=== PATIENT | male | born 1955 | race Caucasian/White ===

== ENCOUNTER 2025-01-23 18:57 | Emergency (ER) | payer MEDICARE, SELFPAY ==
[2025-01-23 19:04] VITALS: BP 176/105; PULSE 77; RESP 17; TEMP 36.4; O2SAT 96; BMI 28.3
--- NOTE | 2025-01-23 20:08 | PC.NURSE ---
this nurse assumed pt care from Swetha FIGUEREDO at 2004.
--- NOTE | 2025-01-23 20:13 | W.ED.SKABFB ---
HPI - Skin/Abscess/Foreign Bdy General: Chief complaint: Skin/Abscess/Foreign Body Stated complaint: fish hook stuck in R thumb Time Seen by Provider: 01/23/25 19:26 History of Present Illness: 69-year-old male patient who got a fishhook stuck in his right thumb. Attempted removal, but could not. Bleeding is controlled. No complication. Hook is embedded with a gaviota in the palmar pad of the distal thumb. No nail involvement. Related Data Allergies Allergy/AdvReac Type Severity Reaction Status Date / Time morphine Allergy Unknown Verified 01/23/25 19:08 Physical Exam Const: COMMON NORMALS: no acute distress GENERAL APPEARANCE: cooperative; not ill appearing and not frail appearing HENMT: COMMON NORMALS: normocephalic and atraumatic HEAD & SCALP: normocephalic and atraumatic Eye: COMMON NORMALS: Equal, round and reactive pupils present and EOMs intact bilaterally PUPIL: Yes Equal, round and reactive pupils present Neck/C-Spine: GENERAL: Yes trachea midline Chest: CHEST: Yes Symmetrical chest wall rise Cardio: COMMON NORMALS: regular rate and regular rhythm RATE: regular rate RHYTHM: regular rhythm Neuro: SIMONE COMA SCALE: document GCS findings Simone coma scale eye opening: Spontaneous [place] coma scale verbal response: Orientated Simone coma scale motor response: Obey commands Simone coma scale total score: 15 SENSORY EXAM: Yes extremities (intact) Psych: COMMON NORMALS: speech normal SPEECH: Yes normal speech Skin: COMMON NORMALS: no rashes or lesions noted NARRATIVE SKIN EXAM: Hook embedded in the distal palmar pad of the thumb on the right side. Bleeding controlled. No laceration. GENERAL SKIN EXAM: no rashes or lesions noted Procedures Foreign Body Removal Site: other (Right thumb) Description of foreign body: fish hook Sedation/Analgesia: none Technique: removal with forceps Confirmed by:: direct visualization Complications: none Post-procedure exam: awake, alert Neurovascular: normal capillary fill Course Vital Signs: Vital signs: Vital Signs Temperature 97.6 F 01/23/25 19:04 Pulse Rate 77 01/23/25 19:04 Respiratory Rate 17 01/23/25 19:04 Blood Pressure 176/105 01/23/25 19:04 Pulse Oximetry 96 01/23/25 19:04 Oxygen Delivery Me thod Room Air 01/23/25 19:04 MDM - Skin/Abscess/Foreign Bdy Medicial Decision Making Hook removed with push through technique, no complication. Tetanus updated. Discharged. No radiology studies performed this visit Discharge Plan Discharge Patient Disposition: Home Clinical Impression: Fish hook in finger Condition: Stable Discharge Orders: Discharge ED (Routine); Ordered 01/23/25 Ordered By: Santana Loving Patient Instructions: Puncture Wound (ED), Opioid Safety, Pain Management Activity Restrictions/Additional Instructions: Clean with soap and running water. Return for increased pain, swelling, redness, etc. Print Language: Syriac Coding Level of Care Code ED Hotel Maintenance Engineer for [employer]
[2025-01-23] MEDS: tetanus-dipt-pertussis 0.5 mL SDV IM (20:19)
== END 2025-01-23 20:26 | disposition home or self-care (01) ==
PROVIDERS: Emergency Provider Emergency Medicine
DX: S61.041A Puncture wound with foreign body of right thumb without damage to nail, initial encounter (principal); W45.8XXA Other foreign body or object entering through skin, initial encounter
CPT/HCPCS: 90715; 99283; 99291

== ENCOUNTER 2025-06-03 16:49 | Emergency (ER) | payer MEDICARE, SELFPAY ==
--- OUTSIDE RECORDS SUMMARY | 2023-01-17 19:00 | XMS_ITS | Continuity of Care Document ---
Author Organization [facility] Address [address] [place] [address] Phone Care Team Providers Care Vice President Media Relations Name Role Phone Noah Nelson MD Unavailable Unavailable Advance Directives Directive Yes / No Effective Date File Name No Information Encounters Encounter Description Practice Location Reason(s) For Visit Diagnoses Date Provider Providers Copied on Encounter [facility] [address], [place], [place], [id number], [place] tel:[phone] [facility] No Information 3 Omar Zamora. [address] [facility] [facility], [address], [place], [place], [id number] , [place]. [phone] Family History Family Member Type Diagnosis Age At Onset No Information Payers Payer name Insurance type Covered constitution party ID Authoriza tion(s) No Information Social History Type Description Quantity Date Captured Comments Sex Male Smoking Status No Information Chief Complaint And Reason For Visit No Information Reason For Referral Reason For Referral No Information History Of Present Illness Encounter Date Complaint History Of Prese nt Illness No Information Functional Status Date Functional Assessmen t No Information Instructions Date Instruction Additional Infor leana Impression/Plan Related to Recen t retinal detachment, total or subtotal Assessments Type Assessment Date No Information Patient Care Teams Name Effective Dates (start - stop) Status Members No Information
--- OUTSIDE RECORDS SUMMARY | 2025-06-03 16:55 | XMS_ITS | Clinical Summary ---
Author Organization [facility] Address [address] [place] [place] [address] Care Team Providers Care Anode Crew Supervisor Name Role Phone Deanne Sood) Richard Primary Care Provider Source Comments NOTE: The information displayed by Care Everywhere is extracted from the complete medical record and may not identify all current or past patient conditions.[facility] Allergies Active Allergy Reactions Criticality Noted Date Comments Morphine 11/25/2022 Other reaction(s): Edema, Weal Medications Medication Sig Dispensed Refills Start Date End Date Status Alcohol (BD ALCOHOL SWABS) Top Med PadsIndications:DM 2 W HYPERGLYCEMIA Use as directed 200 Each 3 11/27/2022 11/26/2026 Active Container (SHARPS CONTAINER) Misc MiscIndications:DM 2 W HYPERGLYCEMIA Use for sharps disposal as directed 1 Each 11/27/2022 11/26/2026 Active Aspirin (ECOTRIN LOW STRENGTH) [address] TabIndications:DM 2 CONTROLLED BY DIET,DYSLIPIDEMIA Take 1 tablet by mouth daily 100 tablet 06/05/2023 06/04/2027 Active blood sugar diagnostic (ONETOUCH VERIO TEST STRIPS) Misc StripsIndications:DM 2 Use two times a day for blood sugar 200 Strip 3 09/27/2024 09/27/2026 Active lancets (ONETOUCH DELICA PLUS LANCET) 30 gauge Misc MiscIndications:DM 2 Use 2 times a day as directed to test blood sugar. For use with Delica Plus lancing device 200 Each 3 09/27/2024 09/27/2026 Active Atorvastatin (LIPITOR) 20 mg Oral TabIndications:HYPER LIPIDEMIA Take 1 tablet by mouth daily to reduce risk of heart attacks and strokes 100 tablet 1 04/27/2025 04/27/2027 Active Levothyroxine (LEVOTHROID/SYNTHROI D) 100 mcg Oral TabIndications:KIM UMA THYROIDITIS,HYPOTHYR OIDISM DUE TO THYROIDITIS Take 1 tablet by mouth daily 30 minutes before breakfast six days per week, and take 1 and half tablets (equal to 150 mcg) by mouth daily one day per week 150 tablet 2 04/27/2025 04/27/2027 Active Ciprofloxacin (CIPRO) 500 mg Oral TabIndications:ABDOM INAL PAIN Take 1 tablet by mouth 2 times a day for 10 days 20 tablet 04/27/2025 05/27/2025 metroNIDAZOLE (FLAGYL) 500 mg Oral TabIndications:ABDOM INAL PAIN Take 1 tablet by mouth 3 times a day for 10 days 30 tablet 04/27/2025 05/27/2025 Active Problems Problem Noted Date Diagnosed Date MIXED HEADACHE 09/27/2024 FATTY LIVER 03/30/2024 Overview (04/27/2025): FIB-4 Index Component Found Value More Info Age 69 n/a ALT 19 03/17/2024 2:17 PM AST 17 03/17/2024 2:17 PM Platelets 215 03/17/2024 2:17 PM Score: 1.25 Points LOW RISK: Virtual Classroom Manager patient to drink no alcohol Order nonalcoholic fatty liver disease video to be sent to patient (infant childcare provider online education programs) Refer patient to [facility] for weight loss and/or to maintain normal BMI If patient candidate for bariatric surgery, consider referral Repeat Fatty Livery Fibrosis Panel and recalculate Fib4 score in 3 years Note: Weight loss of 10% leads to significant improvement in SIFUENTES FIB-4 Index Component Found Value More Info Age 70 n/a ALT 18 04/26/2025 8:49 AM AST 20 04/26/2025 8:49 AM Platelets 221 04/26/2025 8:49 AM Score: 1.49 Points HIGH RISK: Obtain Fibroscan (order can be placed under GI referral and may require travel to another medical center) Virtual Classroom Manager patient to drink no alcohol Order nonalcoholic fatty liver disease video to be sent to patient (infant childcare provider online education programs) Refer patient to [facility] for weight loss and/or to maintain normal BMI If Fib4 > 3.25, consider early GI referral given high risk of cirrhosis If patient candidate for bariatric surgery, consider referral Note: Weight loss of 10% leads to significant improvement in SIFUENTES DM 2 12/02/2023 CHRONIC NECK PAIN > 3 MONTHS 12/02/2023 BILAT KNEE JOINT PAIN 08/27/2023 MATHEMATICS FACULTY MEMBER NON WARFARIN ORAL ANTICOAGULANT THERAP Y 05/20/2023 CHRONIC LOW BACK PAIN W LUMBAR RADICULOPATHY 04/2023 DM 2 CONTROLLED BY DIET 04/18/2023 CHEST PAIN 11/26/2022 ATHEROSCLEROSIS OF AORTA 07/02/2021 Overview (07/02/2021): 06/2021 chest xray GENERALIZED ANXIETY DISORDER 04/03/2021 COSTOCHONDRITIS 04/03/2021 OSTEOARTHRITIS OF BILAT HIPS 02/02/2021 Overview (02/02/2021): 01/2021 xray - mild GERD (GASTROESOPHAGEAL REFLUX DISEASE) INSOMNIA DISORDER, NONORGANIC, PERSISTENT 2020 TENSION HEADACHE 08/14/2020 CERVICAL SPONDYLOSIS 08/14/2020 LEFT VENTRICULAR DIASTOLIC DYSFUNCTION 0 Overview (07/01/2020): 06/2020 echocardiogram - mild AORTIC VALVE REGURGITATION 07/01/2020 Overview (05/13/2023): 06/2020 echocardiogram - mild - repeat echocardiogram in 2-3 years 04/2022 dobutamine stress echocardiogram non ischemic, mild AR - repeat an echocardiogram in 3 years 04/2023 echocardiogram Doppler shows no aortic stenosis or regurgitation, SUPRAVENTRICULAR TACHYCARDIA, UNSPECIFIED 2019 Overview (07/01/2020): 03/2020 short run of SVT asymptomatic OSTEOARTHRITIS OF LEFT KNEE 03/26/2019 BORIS THYROIDITIS 07/26/2018 ERECTILE DYSFUNCTION 07/24/2018 DYSLIPIDEMIA 12/09/2017 Overview (07/24/2018): ASCVD-Risk (A-Risk): 10.0% HYPOTHYROIDISM DUE TO THYROIDITIS 12/09/2017 SCREENING COLONOSCOPY 12/03/2017 Overview (12/05/2017): 12/03/2017 colonoscopy: 2 tiny polyps removed. mild Diverticulosis. Small internal hemorrhoids. -Next colonoscopy in 10 Years Pathology: hyperplastic NEVER SMOKED 11/20/2017 LUMBAR SPONDYLOSIS 11/20/2017 NECK PAIN 11/20/2017 Resolved Problems Problem Noted Date Diagnosed Date Resolved Date ATRIAL FIBRILLATION, PAROXYSMAL 05/13/2023 06/05/2023 Overview (05/13/2023): 03/2023 event monitor VENTRICULAR TACHYCARDIA, UNSPECIFIED TYPE 04/03/2023 04/03/2023 DM 2 W HYPERGLYCEMIA 11/26/2022 023 DM 2 10/15/2022 11/26/2022 DM 2 W MIXED HYPERLIPIDEMIA 06/16/2022 11/26/2022 HX OF ACUTE KIDNEY INJURY 04/01/2021 COVID-19 PNEUMONIA 04/01/2021 ACUTE HYPOXEMIC RESPIRATORY FAILURE 04/01/2021 04/02/2022 SEVERE SEPSIS W ACUTE ORGAN DYSFUNCTION 04/01/2021 04/03/2021 HX OF COVID-19 DISEASE 04/01/202103/15 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 angiogram aorta 07/2020 The ascending portion of the thoracic aorta is within the upper limits of normal in terms of caliber measuring 3.9 cm in greatest Diameter. TINGLING SENSATION 07/24/2018 8 PREDIABETES 12/09/2017 12/04/2022 Encounters Date Type Department Care Team Description 05/10/2025 8:00 AM PDT - 05/10/2025 11:59 PM PDT Hospital Encounter [facility] [address] [place] [address] Discharge Disposition: Home or Self Care. 04/27/2025 2:11 PM PDT - 04/27/2025 11:59 PM PDT Hospital Encounter [facility] [address] [place] [address] Discharge Disposition: Home or Self Care. 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; DM 2 CONTROLLED BY DIET; FATTY LIVER; ATHEROSCLEROSIS OF AORTA 04/19/2025 Telephone [facility] [address] [place] [address] Marissa Garcia PHARMACY MEDICATION ADHERENCE SERVICE from Last 3 Months Immunizations Name Administration Dates Next Due INF (Influenza) unspecified formulation 06/22/2017 INFS pres free 65 yrs and ov er high dose (Fluzone quadrivalent 11/26/2022() PCV20 ([id number]) (Pneumococ heather conjugate, 20 valent) 11/26/2022() PPSV23 (Pneumococcal polysaccharide) (Deferred: - education provided; patient refused pneumococal vaccine) Tdap (ADACEL) (Tetanus, diph theria, acellular pertussis) 2025 Tdap (Tetanus, diphtheria, a cellular pertussis) 02/20/2010 Family History Medical History Relation Comments Coronary Artery Disease Father Stroke Father Diabetes Maternal Grandfather Breast Cancer None Colon Cancer None Hypertension None Prostate Cancer None Relation Status Comments Father Maternal Grandfather Social History Tobacco Use Types Packs/Day Years Used Date Smoking Tobacco: Never Smokeless Tobacco: Never Tobacco Cessation:Counseling Given: Not Answered Alcohol Use Standard Drinks/Week Comments No 0 (1 standard drink = 0.6 oz pur e alcohol) Substance Use Types Use/Week Comments No Sex and Gender Information Value Date Recorded Sex Assigned at Not on file Gender Identity Not on file Sexual Orientation Not on file Last Filed Vital Signs Vital Sign Reading Time Taken Comments Blood Pressure 130/82 04/27/2025 1:26 PM PDT Pulse 72 04/27/2025 1:26 PM PDT Temperature 36.4 C (97.5 F) 04/27/2025 1:26 PM PDT Respiratory Rate 18 04/27/2025 1:26 PM PDT Oxygen Saturation 100% 04/27/2025 1:26 PM PDT Inhaled Oxygen Concentration - - Weight 100 kg (220 lb 7.4 oz) 04/27/2025 1:26 PM PDT Height 185.4 cm (6' 1 ) 04/27/2025 1:26 PM PDT Body Mass Index 29.09 04/27/2025 1:26 PM PDT Plan of Treatment Upcoming Encounters Date Type Department Care Team (Late st Contact Info) Description 07/30/2025 6:30 AM PST Allied Health/Nurse Visit GASTROENTEROLOGY [address] [place] [address] Melissa Mitchell (L.V.N.), L.V.N. [address] [place] [address] Health Maintenance Due Date Last Done Comments IMM PNEUMOCOCCAL (1 of 2 - PCV) 1974 IMM ZOSTER (19 YRS AND OLDER ) (1 of 2) 2005 IMM RSV HIGH RISK (60-74 YRS ) (1 - Risk 60-74 years 1-dose series) 2015 IMM INFLUENZA (6 MO AND OLDER) (#1) 05/23/202506/22 DIABETIC FOOT EXAM 09/27/2025 09/27/2024, 1 10/28/2022, 11/26/2022 IMM DTAP,TDAP,TD (42 DAYS-12 0 YRS) (3 - Td or Tdap) 2035 2025, 02/20/2010 Procedures Procedure Name Priority Date/Time Associated Diagnosis Comments CT ABD AND PELVIS WO/W CONTRAST Routine 05/04/2025 8:00 AM PDT ABDOMINAL PAIN XR RIGHT HAND 3 OR MORE VIEWS STAT 04/27/2025 2:20 PM PDT RIGHT FINGER PAIN ALBUMIN URINE Routine 04/26/2025 9:06 AM PDT HYPERLIPIDEMIA DM 2 CONTROLLED BY DIET T4, FREE Routine 04/26/2025 8:49 AM PDT ALBUMIN, BROMCRESOL GREEN Routine 04/26/2025 8:49 AM PDT DM 2 CONTROLLED BY DIET AST Routine 04/26/2025 8:49 AM PDT DM 2 CONTROLLED BY DIET PSA Routine 04/26/2025 8:49 AM PDT SCREENING POTASSIUM Routine 04/26/2025 8:49 AM PDT HYPERLIPIDEMIA DM 2 CONTROLLED BY DIET PLATELET AUTOMATED COUNT Routine 04/26/2025 8:49 AM PDT HYPERLIPIDEMIA DM 2 CONTROLLED BY DIET HEMOGLOBIN AND HEMATOCRIT Routine 04/26/2025 8:49 AM PDT HYPERLIPIDEMIA DM 2 CONTROLLED BY DIET SODIUM Routine 04/26/2025 8:49 AM PDT HYPERLIPIDEMIA DM 2 CONTROLLED BY DIET ALT Routine 04/26/2025 8:49 AM PDT HYPERLIPIDEMIA DM 2 CONTROLLED BY DIET TSH Routine 04/26/2025 8:49 AM PDT HYPERLIPIDEMIA DM 2 CONTROLLED BY DIET CREATININE Routine 04/26/2025 8:49 AM PDT HYPERLIPIDEMIA DM 2 CONTROLLED BY DIET LIPID PANEL Routine 04/26/2025 8:49 AM PDT HYPERLIPIDEMIA DM 2 CONTROLLED BY DIET HEMOGLOBIN A1C, DIABETIC MONITORING Routine 04/26/2025 8:49 AM PDT DM 2 WO COMPLICATIONS from Last 3 Months Results * CT ABD AND PELVIS WO/W CONTRAST (05/04/2025 8:00 AM PDT) Anatomical Region Laterality Modality Pelvis, Abdomen Other Addenda Addendum by Provider, Outside Imaging Richard Ramos on 05/10/2025 8:01 AM PDT Outside Study Sending Site: [facility] PtName: Juan Daniel Trejo SEX: Noah : 1955 Date of Service: 05/04/2025 12:01:00 PM [facility] Procedure: CT ABD AND PELVIS WO/W CONTRAST EXAM: CT ABDOMEN AND PELVIS WITHOUT AND WITH CONTRAST HISTORY: Abdominal pain TECHNIQUE: Contiguous axial images were obtained utilizing a multislice, multidetector CT scanner. Post-processed reformations were also submitted for review. The images of the abdomen and pelvis were obtained before and following the administration of IV contrast. Contrast: 90 cc Omnipaque 350 IV contrast. The total DLP was 2112 mGy-cm and the CTDI was 20 mGy. One or more of the following dose reduction techniques were used: automated exposure control, adjustment of the mA and/or kV according to patient size, use of iterative reconstruction technique. A total of 0 CT (Computed Tomography) examinations and 0 myocardial perfusion studies have been performed on this patient over the past 12 months. Counts as indicated include examinations performed within our network. COMPARISON: None available. FINDINGS: Lower Chest: Visualized lung bases and heart are unremarkable. Abdomen: Liver: Normal. Bile Ducts: Normal caliber. Gallbladder: No calcified gallstones. Normal wall. Pancreas: Within normal limits. Spleen: Within normal limits. Adrenals: Within normal limits. Kidneys: Within normal limits. Pelvis: Reproductive Organs: The prostate gland is mildly enlarged. Ureters: Within normal limits. Bladder: Within normal limits. GI Tract: Stomach: Within normal limits. Bowel: Normal caliber. Large colonic stool burden. Uncomplicated colonic diverticulosis. Lymph Nodes: No enlarged lymph nodes. Peritoneum: Within normal limits. Vessels: Normal caliber. Major arterial branches patent. Retroperitoneum: Within normal limits. Abdominal Wall: Within normal limits. Bones: No suspicious osseous lesion. Unless otherwise recommended, any incidental findings identified above require no follow up imaging based on consensus recommendations. IMPRESSION: 1. No acute CT finding in the abdomen or pelvis. 2. Uncomplicated colonic diverticulosis. Large colonic stool burden, suggestive of constipation. 3. Hepatic steatosis. 4. Additional details and findings, as above. ReportKey: -[id number] Narrative 05/10/2025 8:01 AM PDT Outside Study Sending Site: [facility] PtName: Juan Daniel Trejo SEX: M : 1955 Date of Service: 05/04/2025 12:01:00 PM [facility] Procedure: CT ABD AND PELVIS WO/W CONTRAST EXAM: CT ABDOMEN AND PELVIS WITHOUT AND WITH CONTRAST HISTORY: Abdominal pain TECHNIQUE: Contiguous axial images were obtained utilizing a multislice, multidetector CT scanner. Post-processed reformations were also submitted for review. The images of the abdomen and pelvis were obtained before and following the administration of IV contrast. Contrast: 90 cc Omnipaque 350 IV contrast. The total DLP was 2112 mGy-cm and the CTDI was 20 mGy. One or more of the following dose reduction techniques were used: automated exposure control, adjustment of the mA and/or kV according to patient size, use of iterative reconstruction technique. A total of 0 CT (Computed Tomography) examinations and 0 myocardial perfusion studies have been performed on this patient over the past 12 months. Counts as indicated include examinations performed within our network. COMPARISON: None available. FINDINGS: Lower Chest: Visualized lung bases and heart are unremarkable. Abdomen: Liver: Normal. Bile Ducts: Normal caliber. Gallbladder: No calcified gallstones. Normal wall. Pancreas: Within normal limits. Spleen: Within normal limits. Adrenals: Within normal limits. Kidneys: Within normal limits. Pelvis: Reproductive Organs: The prostate gland is mildly enlarged. Ureters: Within normal limits. Bladder: Within normal limits. GI Tract: Stomach: Within normal limits. Bowel: Normal caliber. Large colonic stool burden. Uncomplicated colonic diverticulosis. Lymph Nodes: No enlarged lymph nodes. Peritoneum: Within normal limits. Vessels: Normal caliber. Major arterial branches patent. Retroperitoneum: Within normal limits. Abdominal Wall: Within normal limits. Bones: No suspicious osseous lesion. Unless otherwise recommended, any incidental findings identified above require no follow up imaging based on consensus recommendations. IMPRESSION: 1. No acute CT finding in the abdomen or pelvis. 2. Uncomplicated colonic diverticulosis. Large colonic stool burden, suggestive of constipation. 3. Hepatic steatosis. 4. Additional details and findings, as above. ReportKey: -[id number] Resulting Agency Comment Unknown Procedure Note Provider, Outside Imaging (Richard), Richard - 05/10/2025 Outside Study Sending Site: [facility] PtName: Juan Daniel Trejo SEX: Noah : 1955 Date of Service: 05/04/2025 12:01:00 PM [facility] Procedure: CT ABD AND PELVIS WO/W CONTRAST EXAM: CT ABDOMEN AND PELVIS WITHOUT AND WITH CONTRAST HISTORY: Abdominal pain TECHNIQUE: Contiguous axial images were obtained utilizing a multislice,multidetector CT scanner. Post-processed reformations were also submittedfor review. The images of the abdomen and pelvis were obtained before andfollowing the administration of IV contrast. Contrast: 90 cc Omnipaque 350 IV contrast. The total DLP was 2112 mGy-cm and the CTDI was 20 mGy. One or more of the following dose reduction techniques were used:automated exposure control, adjustment of the mA and/or kV according topatient size, use of iterative reconstruction technique. A total of 0 CT(Computed Tomography) examinations and 0 myocardial perfusion studies havebeen performed on this patient over the past 12 months. Counts asindicated include examinations performed within our network. COMPARISON: None available. FINDINGS: Lower Chest: Visualized lung bases and heart are unremarkable. Abdomen: Liver: Normal. Bile Ducts: Normal caliber. Gallbladder: No calcified gallstones. Normal wall. Pancreas: Within normal limits. Spleen: Within normal limits. Adrenals: Within normal limits. Kidneys: Within normal limits. Pelvis: Reproductive Organs: The prostate gland is mildly enlarged. Ureters: Within normal limits. Bladder: Within normal limits. GI Tract: Stomach: Within normal limits. Bowel: Normal caliber. Large colonic stool burden. Uncomplicated colonicdiverticulosis. Lymph Nodes: No enlarged lymph nodes. Peritoneum: Within normal limits. Vessels: Normal caliber. Major arterial branches patent. Retroperitoneum: Within normal limits. Abdominal Wall: Within normal limits. Bones: No suspicious osseous lesion. Unless otherwise recommended, any incidental findings identified aboverequire no follow up imaging based on consensus recommendations. IMPRESSION: 1. No acute CT finding in the abdomen or pelvis. 2. Uncomplicated colonic diverticulosis. Large colonic stool burden,suggestive of constipation. 3. Hepatic steatosis. 4. Additional details and findings, as above. ReportKey: -[id number] Deanne Sood M.D. CT * XR RIGHT HAND 3 OR MORE VIEWS (04/27/2025 2:20 PM PDT) Anatomical Region Laterality Modality Hand, Upper Extremities Right Digital Radiography 04/27/2025 2:40 PM PDT Impressions 04/27/2025 2:40 PM PDT FINDINGS/IMPRESSION: No acute fracture is identified. The alignment is normal. No significant joint disease is noted. No significant soft tissue abnormality is identified. This report electronically signed by Agustin Maki MD on 04/27/2025 2:40 PM Narrative 04/27/2025 2:40 PM PDT CLINICAL HISTORY: Reason: 4th finger injury 2 weeks ago COMPARISON: No previous study available. Procedure Note Agustin Maki M.D., Richard - 04/27/2025 CLINICAL HISTORY: Reason: 4th finger injury 2 weeks ago COMPARISON: No previous study available. IMPRESSION FINDINGS/IMPRESSION: No acute fracture is identified. The alignment is normal. No significantjoint disease is noted. No significant soft tissue abnormality isidentified. This report electronically signed by Agustin Maki MD on 04/27/2025 2:40PM Deanne Sood M.D. GENER AL IMAGING * ALBUMIN URINE (04/26/2025 9:06 AM PDT) ALBUMIN, URINE, DETECTION LIMIT <= 20 MG/L 5.9 <=120.0 mg/L [facility] [place] CREATININE, URINE 168.9 22.0 - 328.0 mg/dL [facility] - [place] ALBUMIN/CREATIN INE, URINE 3.5 <=29.9 mcg/mg Creat [facility] URINE 04/26/2025 9:06 AM PDT Narrative [facility] - 04/26/2025 6:01 PM PDT [facility] ACCN: [id number] Deanne Sood M.D. URINE CHEMISTRY [facility] [address] [place] [address] * (ABNORMAL) LIPID PANEL (04/26/2025 8:49 AM PDT) CHOLESTEROL 178 <=199 mg/dL [facility] Comment: Please review results carefully for any changes to reference ranges (indicated by R superscript). Deployment of new chemistry analyzers is occurring across [facility] through 2026. TRIGLYCERIDE 185(H) <=149 mg/dL [facility] Comment: Please review results carefully for any changes to reference ranges (indicated by R superscript). Deployment of new chemistry analyzers is occurring across [facility] through 2026.Note that if triglycerides (TG) are sufficiently high, then direct LDL (if TG>1300 mg/dL) or HDL (if TG>2000 mg/dL) measurements may not be valid. HDL 36(L) >=40 mg/dL [facility] Comment: Please review results carefully for any changes to reference ranges (indicated by R superscript). Deployment of new chemistry analyzers is occurring across [facility] through 2026. LDL CALCULATED 109(H) <=99 mg/dL [facility] CHOLESTEROL/HIGH DENSITY LIPOPROTEIN 4.9(H) <=3.9 [facility] Comment:See [employer] for more information. CHOLESTEROL, NON-HDL 142 mg/dL [facility] Comment:NonHDL targets are 3 0 mg/dL higher than LDL targets. BLOOD / Unknown 04/26/2025 8 :49 AM PDT Narrative [facility] - [place] - 04/26/2025 5:35 PM PDT [facility] ACCN: [id number] FASTING? YES Deanne Coats) Indigo Ramos SERUM CHEMISTRY Performing Organization Address [facility] Co de Phone Number [facility] REFERENCE [facility] [address] [place] [address] * HEMOGLOBIN A1C, DIABETIC MONITORING (04/26/2025 8:49 AM PDT) Pathologist [facility] HGBA1C% 7.3 4.6 - 7.4 % [facility] REFERENCE [facility], [facility] Comment: A less stringent goal of < 8.0% may be appropriate for an individual patient with a history of severe hypoglycemia, limited life expectancy, advanced microvascular or macrovascular complications, or extensive comorbid conditions. ESTIMATED AVERAGE GLUCOSE 164 mg/dL [facility] RE[facility]ENCE [facility], [facility] BLOOD / Unknown 04/26/2025 8 :49 AM PDT Narrative [facility]ENCE [facility], [facility] - 04/26/2025 5:25 PM PDT [facility] ACCN: [id number] Deanne Coats) Indigo Ramos SERUM CHEMISTRY Performing Organization Address [facility] Co de Phone Number [facility] REFERENCE [address] [address] * PLATELET AUTOMATED COUNT (04/26/2025 8:49 AM PDT) Pathologist [facility] PLATELETS, AUTOMATED COUNT [id number] - 400 x1000/mcL [facility] MPV 10.2 7.4 - 10.4 fL [facility] REFERENCE LAB[facility]IES, [facility] PLATELET ESTIMATE Adequate Adequate [facility] REFERENCE [facility], [facility] BLOOD / Unknown 04/26/2025 8 :49 AM PDT Narrative [facility] REFERENCE [facility]IES, [facility] - 04/26/2025 5:56 PM PDT [facility] ACCN: [id number] Deanne Sood M.D. HEMAT OLOGY Performing Organization Address [facility]/ZIP Co de Phone Number [address] [address] * ALT (04/26/2025 8:49 AM PDT) ALT 18 <=59 U/L [facility] REFERENCE [facility] Comment: Please review results carefully for any changes to reference ranges (indicated by R superscript). Deployment of new chemistry analyzers is occurring across [facility] through 2026. BLOOD / Unknown 04/26/2025 8 :49 AM PDT Narrative [facility] REFERENCE [facility] - 04/26/2025 5:35 PM PDT DANK ACCN: [id number] Deanne Sood M.D. SERUM CHEMISTRY Performing Organization Address [facility] Co de Phone Number [address] [address] * AST (04/26/2025 8:49 AM PDT) AST 20 <=34 U/L [facility] REFERENCE [facility] Comment: Please review results carefully for any changes to reference ranges (indicated by R superscript). Deployment of new chemistry analyzers is occurring across [facility] through 2026. BLOOD / Unknown 04/26/2025 8 :49 AM PDT Narrative [facility] REFERENCE [facility] - 04/26/2025 5:35 PM PDT DANK ACCN: [id number] Deanne Sood M.D. SERUM CHEMISTRY Performing Organization Address [facility] Co de Phone Number [address] [address] * (ABNORMAL) TSH (04/26/2025 8:49 AM PDT) TSH 8.00(H) 0.35 - 4.00 mcIU/mL [facility] REFERENCE [facility] BLOOD / Unknown 04/26/2025 8 :49 AM PDT Narrative [facility]ENCE [facility] - 04/26/2025 4:52 PM PDT DANK ACCN: [id number] Deanne Sood M.D. ENDOC RINOLOGY Performing Organization Address [facility]/ZIP Co de Phone Number [facility] REFERENCE [address] [address] * T4, FREE (04/26/2025 8:49 AM PDT) T4 FREE 1.0 0.8 - 1.5 ng/dL [facility] REFERENCE [facility] BLOOD / Unknown 04/26/2025 8 :49 AM PDT Narrative [facility] REFERENCE [facility], [facility] - 04/26/2025 5:43 PM PDT DANK ACCN: [id number] Deanne Sood M.D. ENDOC RINOLOGY Performing Organization Address [facility] Co de Phone Number [address] [address] * PSA (04/26/2025 8:49 AM PDT) PSA 0.7 <=6.5 ng/mL [facility] REFERENCE [facility] Comment: The determination that his age-related PSA is either normal or abnormal is valid only if this patient has never been treated for prostate cancer and is not on any medication that would change the PSA value. Clinical correlation is strongly recommended. This PSA assay is performed with the [employer]' Senior Mortgage Underwriter i system analyzer, using chemiluminescent microparticle immunoassay (CMIA) technology, with flexible assay protocols, referred to as Chemiflex. BLOOD / Unknown 04/26/2025 8 :49 AM PDT Narrative [facility] REFERENCE [facility] - 04/26/2025 4:52 PM PDT DANK ACCN: [id number] Deanne Coats) Indigo Ramos ENDOC RINOLOGY Performing Organization Address [facility] de Phone Number [address] [address] * POTASSIUM (04/26/2025 8:49 AM PDT) POTASSIUM 3.9 3.5 - 5.1 mEq/L [facility] Comment: Please review results carefully for any changes to reference ranges (indicated by R superscript). Deployment of new chemistry analyzers is occurring across [facility] through 2026. BLOOD / Unknown 04/26/2025 8 :49 AM PDT Narrative [facility] - 04/26/2025 5:35 PM PDT DANK ACCN: [id number] Deanne Sood M.D. SERUM CHEMISTRY Performing Organization Address [facility] de Phone Number [address] [address] * CREATININE (04/26/2025 8:49 AM PDT) CREATININE 1.12 0.72 - 1.25 mg/dL [facility] Comment: Please review results carefully for any changes to reference ranges (indicated by R superscript). Deployment of new chemistry analyzers is occurring across [facility] through 2026. EGFR, CREATININE-BASED FORMULA (CKD-EPI 2020) 71 >=60 mL/min/BSA [facility] Comment: GFR estimate is by the CKD-EPI 2020 equation which uses age, sex, and serum creatinine. GFR estimate is less reliable if on dialysis or if acute kidney injury. Additional advice for the provider is available in Renal Failure Risk Assessment below. CKD Categorization by GFR & ACR (urine Albumin/Creatinine Ratio) GFR >3 months ACR <30(A1) ACR 30-<300(A2) ACR 300+(A3) >=90 CKD1 A2 or * CKD1 A3 60-<90 CKD2 A2 or * CKD2 A3 45-<60 CKD3a A1 or * CKD3a A2 CKD3 A3 30-<45 CKD3b A1 CKD3b A2 CKD3 A3 15-<30 CKD4 A1 CKD4 A2 CKD4 A3 <15 CKD5 A1 CKD5 A2 CKD5 A3 * or may label a bnormal kidney function or p roteinuria as appropriate. BLOOD / Unknown 04/26/2025 8 :49 AM PDT Narrative [facility] REFERENCE [facility] - 04/26/2025 5:35 PM PDT DANK ACCN: [id number] Deanne Sood M.D. SERUM CHEMISTRY Performing Organization Address [facility] Co de Phone Number [facility] [address] [place] [address] * ALBUMIN, BROMCRESOL GREEN (04/26/2025 8:49 AM PDT) ALBUMIN DIALYSIS, BROMCRESOL GREEN 4.2 3.2 - 4.6 g/dL [facility] Comment: Please review results carefully for any changes to reference ranges (indicated by R superscript). Deployment of new chemistry analyzers is occurring across [facility] through 2026. BLOOD / Unknown 04/26/2025 8 :49 AM PDT Narrative [facility] - 04/26/2025 5:35 PM PDT DANK ACCN: [id number] Deanne Sood M.D. SERUM CHEMISTRY Performing Organization Address City/[facility]/ZIP Co de Phone Number [facility] [address] [address] * HEMOGLOBIN AND HEMATOCRIT (04/26/2025 8:49 AM PDT) HGB 15.9 13.5 - 17.5 g/dL [facility] REFERENCE [facility] HCT, AUTO 48.4 41.0 - 51.0 % [facility] BLOOD / Unknown 04/26/2025 8 :49 AM PDT Narrative [facility] REFERENCE [facility], [facility] - 04/26/2025 5:52 PM PDT DANK ACCN: [id number] Deanne Coats) Indigo Ramos HEMAT OLOGY Performing Organization Address [facility] Co de Phone Number [address] [address] * SODIUM (04/26/2025 8:49 AM PDT) SODIUM 140 136 - 145 mEq/L [facility] Comment: Please review results carefully for any changes to reference ranges (indicated by R superscript). Deployment of new chemistry analyzers is occurring across [facility] through 2026. BLOOD / Unknown 04/26/2025 8 :49 AM PDT Narrative [facility] REFERENCE [facility], [facility] - 04/26/2025 5:35 PM PDT DANK ACCN: [id number] Deanne Sood M.D. SERUM CHEMISTRY Performing Organization Address [facility]/ZIP Co de Phone Number [address] [address] from Last 3 Months Additional Health Concerns Infection Onset Date Last Indicated COVID-19 (SARS-CoV-2): Stu benedict Respiratory and Contact Precautions Comment:04/01/21 COVID pos 04/02/2021 04/02/2021 Advance Directives * Full Code (Latest Code Status on File) Date Activated Date Inactivated Comments 11/26/2022 6:39 PM 11/28/2022 12:45 AM Question Answer Comments Result Release to patient? Immediate * Full Code Date Activated Date Inactivated Comments 04/02/2021 7:05 AM 04/04/2021 4:17 AM Question Answer Comments Result Release to patient? Immediate Healthcare Agents on File Name Relationship Healthcare Agent [facility] Communication Malia Molina Primary Health C are Decision Maker Verbally Appointed by Patient Care Teams Anode Crew Supervisor Relationship Specialty Start Date End Date Deanne Sood), M.Dion. [address] [place] [address] PCP - General Internal Medicine 07/10/17
--- OUTSIDE RECORDS SUMMARY | 2025-06-03 16:55 | XMS_ITS | Encounter Summary ---
Author Organization [facility] Address [address] [place] [address] Care Team Providers Care Mortgage Professional Name Role Phone Deanne Sood M.D., M.D. Primary Care Provider Encounter Details Date Type Department Care Team (Late st Contact Info) Description 04/01/2021 Orders Only [facility] [address] [place] [address] Ashu Vera), Richard [address] [place] [address] CORONAVIRUS COVID-19 DISEASE Social History Tobacco Use Types Packs/Day Years Used Date Smoking Tobacco: Never Smokeless Tobacco: Never Alcohol Use Standard Drinks/Week Comments No 0 (1 standard drink = 0.6 oz pur e alcohol) Substance Use Types Use/Week Comments No Sex and Gender Information Value Date Recorded Sex Assigned at Not on file Gender Identity Not on file Sexual Orientation Not on file documented as of this encounter Plan of Treatment Upcoming Encounters Date Type Department Care Team (Late st Contact Info) Description 07/30/2025 6:30 AM PST Allied Health/Nurse Visit GASTROENTEROLOGY [address] [place] [address] Melissa Mitchell (L.V.N.), L.V.NIsauro [address] [place] [address] documented as of this encounter Visit Diagnoses Diagnosis COVID-19 DISEASE documented in this encounter Additional Health Concerns Infection Onset Date Last Indicated Resolved Time COVID-19 (SARS-CoV-2): Stu mcmullen Respiratory and Contact Precautions Comment:04/01/21 COVID pos 04/02/2021 04/02/2021 documented as of this encounter Care Teams Mortgage Professional Relationship Specialty Start Date End Date Deanne Sood), Inocente. [address] [place] [address] PCP - General Internal Medicine 07/10/17 documented as of this encounter
--- NOTE | 2025-06-03 16:56 | XRR_ITS ---
PROCEDURE INFORMATION: Exam: XR Chest Exam date and time: 06/03/2025 5:32 PM Age: 70 years old Clinical indication: Cough; Additional info: Dyspnea; Cough; Dizziness; Headache TECHNIQUE: Imaging protocol: Radiologic exam of the chest. Views: 1 view. COMPARISON: No relevant prior studies available. FINDINGS: Lungs: Unremarkable. No consolidation. Pleural spaces: Unremarkable. No pleural effusion. No pneumothorax. Heart/Mediastinum: Unremarkable. No cardiomegaly. Bones/joints: Unremarkable. XR/XR chest 1V portable [id number] IMPRESSION: No acute finding.
[2025-06-03 16:57] VITALS: BP 127/84; PULSE 71; RESP 18; TEMP 36.4; O2SAT 96; BMI 29.0
--- NOTE | 2025-06-03 17:02 | ECG_ITS ---
[facility]: 2025-[facility]03 Pat Name: Juan Daniel Trejo Department: Room: Gender: Male Neurobiologist: : 1955 Requested By: Jake Pena Order Number: [id number] Naila MD: NASREEN GODOY Measurements Intervals [place] Rate: 60 P: 70 NE: 181 QRS: 53 QRSD: 100 T: 80 QT: 430 QTc: 430 Interpretive Statements SINUS RHYTHM No previous ECG available for comparison Electronically Signed On 06-03-2025 20:08:37 CDT by NASREEN GODOY [email or web address]
[2025-06-03 17:47] LABS: Hematocrit 50.0 % (37-53); Hemoglobin 17.10 g/dL (11.27-16.99); Mean Corpuscular HGB Conc 34.2 g/dL (30-55); Mean Corpuscular Hemoglobin 29.1 pg (27-33); Mean Corpuscular Volume 85.0 fl (82-101); Nucleated Red Blood Cells % 0 %; Platelet Count 184 10^3/cmm (157-399); Red Blood Count 5.88 10^6/uL (3.85-5.65); White Blood Count 7.52 10^3/uL (3.29-11.43)
[2025-06-03 18:08] LABS: Alanine Aminotransferase 15 U/L (0-41); Albumin Level 4.6 g/dL (3.5-5.2); Alkaline Phosphatase 75 U/L (40-130); Anion Gap 15.4 (5-19); Aspartate Amino Transferase 15 U/L (0-40); Blood Urea Nitrogen 16 mg/dL (8-23); Calcium 9.6 mg/dL (8.5-10.5); Carbon Dioxide 25 mmol/L (22-29); Chloride 104 mmol/L (98-107); Creatinine Clr Calc Pharmacy 85.4156; Globulin 3.5 g/dL (1.3-4.6); Glucose 149 mg/dL (65-115); Lipase 22 U/L (13-60); Magnesium 2.2 mg/dL (1.7-2.3); Osmolality Calculated 294 mOsm/kg (285-295); Potassium 4.4 mmol/L (3.5-5.1); Sodium 140 mmol/L (136-145); Total Protein 8.1 g/dL (6.6-8.7)
--- NOTE | 2025-06-03 18:18 | CTR_ITS ---
PROCEDURE INFORMATION: Exam: CT Head Without Contrast Exam date and time: 06/03/2025 6:25 PM Age: 70 years old Clinical indication: C/O dizziness TECHNIQUE: Imaging protocol: Computed tomography of the head without contrast. Radiation optimization: All CT scans at this facility use at least one of these dose optimization techniques: automated exposure control; mA and/or kV adjustment per patient size (includes targeted exams where dose is matched to clinical indication); or iterative reconstruction. COMPARISON: No relevant prior studies available. RADIATION DOSE METRICS: Total DLP (mGy-cm): 1041.38 FINDINGS: Brain: No hemorrhage. Unremarkable white matter. No mass effect. Cerebral ventricles: No ventriculomegaly. Paranasal sinuses: Visualized sinuses are predominantly clear. Polyp in the posterior right ethmoid air cells. No fluid levels. Mastoid air cells: Visualized mastoid air cells are well aerated. Orbital cavities: Right scleral banding. Bones: Unremarkable. No acute fracture. Soft tissues: Unremarkable. CT/CT head wo con* [id number] IMPRESSION: No acute intracranial finding.
--- NOTE | 2025-06-03 18:30 | ED_ITS ---
HPI - Dizziness 2 General: Chief Complaint: Dizziness Stated Complaint: dizzy / NV Time Seen by Provider: 06/03/25 16:54 History of Present Illness: HPI Narrative: Patient is a 70-year-old male who presents with persistent dizziness that began yesterday around noon while doing yard work. He describes the dizziness as occurring primarily with head movement or when attempting to walk, stating his head 'feels like Jell-O.' The dizziness has been continuous since onset. He reports associated nausea with one episode of vomiting in the waiting room today. Patient also notes some epigastric discomfort described as 'tightness' that partially improved after vomiting. He has experienced episodes of diaphoresis and clamminess. Patient reports a slight headache but denies fever, cough, diarrhea, or known sick contacts. He mentions feeling generally exhausted, comparing it to how he felt when he had COVID-19 three to four years ago, though notes he did not have dizziness with his COVID infection. Patient denies significant shortness of breath but states 'it just feels like I don't get a good deep breath.' Related Data Previous Rx's ?Medication ?Instructions ?Recorded meclizine 25 mg tablet 25 mg PO TID PRN dizziness # 30 tabs 06/03/25 Allergies Allergy/AdvReac Type Severity Reaction Status Date / Time morphine Allergy Unknown Verified 01/23/25 19:08 Physical Exam 2 Const: COMMON NORMALS: no acute distress and alert GENERAL APPEARANCE: c ooperative; not ill appearing and not frail appearing HENMT: COMMON NORMALS: normocephalic, atraumatic and Normal external nose present HEAD & SCALP: normocephalic and atraumatic FACE & SINUS: normal facial exam and face symmetric NOSE: Normal external nose present Eye: COMMON NORMALS: Equal, round and reactive pupils present and EOMs intact bilaterally PUPIL: Yes Equal, round and reactive pupils present Neck/C-Spine: GENERAL: Yes trachea midline Chest: CHEST: Yes Symmetrical chest wall rise Resp: COMMON NORMALS: normal respiratory effort, No retractions, No use of accessory muscles and clear to auscultation bilaterally AUSCULTATION: clear to auscultation bilaterally Cardio: COMMON NORMALS: regular rate and regular rhythm RATE: regular rate RHYTHM: regular rhythm GI: COMMON NORMALS: Normal to inspection, nondistended, normoactive bowel sounds present PALPATION: Yes Tenderness to palpation present (GI) (mild epigastric) Extremity: COMMON NORMALS: no pedal edema Neuro: SIMONE COMA SCALE: document GCS findings [place] coma scale eye opening: Spontaneous Simone coma scale verbal response: Orientated Simone coma scale motor response: Obey commands [place] coma scale total score: 15 S ENSORIUM/ORIENTATION: Yes alert CRANIAL NERVES: Yes CN normal except as noted COORDINATION/BALANCE: arigls-gz-[id number] test normal and ykec-zc-qgvv test normal SPEECH: speech normal SENSORY EXAM: Yes extremities (intact) MOTOR EXAM: Pronator motor function not present and Normal motor muscle tone present throughout COORDINATION: azdafb-kq-okmy test normal and lful-dw-snsi test normal Psych: COMMON NORMALS: speech normal SPEECH: Yes normal speech Skin: COMMON NORMALS: no rashes or lesions noted GENERAL SKIN EXAM: no rashes or lesions noted Course 2 Vital Signs: Vital signs: Vital Signs Temperature 97.6 F 06/03/25 16:57 Pulse Rate 61 06/03/25 22:09 Respiratory Rate 17 06/03/25 19:00 Blood Pressure 143/83 06/03/25 22:09 Pulse Oximetry 94 06/03/25 22:09 Oxygen Delivery Me thod Room Air 06/03/25 20:30 MDM - Dizziness Medical Decision Making Patient has some mild nystagmus on left gaze. No other neurological signs. His vitals are stable. He is not orthostatic. Head CT is negative. His chest x- ray is nonacute. His hemoglobin is 17 creatinine is 1. He is given a liter of fluid. He is feeling somewhat better. He admits to his nurse this evening that he was running a weedeater in the heat outside all day yesterday. His urinalysis is negative, and shows no blood. He is given 0.5 mg of Ativan with improvement in his vertigo. He will be placed on meclizine. Return for any worsening symptoms despite treatment. Lab Data 06/03/25 17:33 06/03/25 17:33 Radiology Impressions Chest X-Ray 06/03/25 16:56 IMPRESSION: No acute finding. Head CT 06/03/25 18:18 IMPRESSION: No acute intracranial finding. Laboratory Results WBC 7.52 10^3/uL (3.29-11.43) 06/03/25 17:33 RBC 5.88 10^6/uL (3.85-5.65) H 06/03/25 17:33 Hgb 17.10 g/dL (11.27-16.99) H 06/03/25 17:33 Hct 50.0 % (37-53) 06/03/25 17: MCV 85.0 fl (82-101) 06/03/25 17:33 MCH 29.1 pg (27-33) 06/03/25 17: MCHC 34.2 g/dL (30-55) 06/03/25 17: RDW 13.7 % (12.1-15.1) 06/03/25 17: Plt Count 184 10^3/cmm (157-399) 06/03/25 17: MPV 9.2 fL (7.4-10.4) 06/03/25 17:33 Neut % (Auto) 73.2 % 06/03/25 17:33 Lymph % (Auto) 17.7 % 06/03/25 17:33 [place] % (Auto) 7.2 % 06/03/25 17:33 Eos % (Auto) 1.1 % 06/03/25 17:33 Baso % (Auto) 0.3 % 06/03/25 17: Neut # (Auto) 5.51 10^3/uL (1.8-7.7) 06/03/25 17: Lymph # (Auto) 1.3 10^3/uL (0.8-4.8) 06/03/25 17:33 [place] # (Auto) 0.5 10^3/uL (0.2-0.9) 06/03/25 17: Eos # (Auto) 0.1 10^3/uL (0.0-0.8) 06/03/25 17: Baso # (Auto) 0.0 10^3/uL (0.0-0.1) 06/03/25 17: Nucleated RBC % (auto) 0 % 06/03/25 17: Nucleated RBCs # 0.0 /100WBC 06/03/25 17:33 Sodium 140 mmol/L (136-145) 06/03/25 17:33 Potassium 4.4 mmol/L (3.5-5.1) 06/03/25 17:33 Chloride 104 mmol/L (98-107) 06/03/25 17:33 Carbon Dioxide 25 mmol/L (22-29) 06/03/25 17:33 Anion Gap 15.4 (5-19) 06/03/25 17:33 BUN 16 mg/dL (8-23) 06/03/25 17:33 Creatinine 1.0 mg/dL (0.7-1.2) 06/03/25 17:33 GFR Calculation 73.9 mL/min (90-130) L 06/03/25 17:33 Glucose 149 mg/dL (65-115) H 06/03/25 17:33 Calculated Osmolality 294 mOsm/kg (285-295) 06/03/25 17:33 Calcium 9.6 mg/dL (8.5-10.5) 06/03/25 17:33 Magnesium 2.2 mg/dL (1.7-2.3) 06/03/25 17:33 Total Bilirubin 0.9 mg/dL (0.15-1.2) 06/03/25 17:33 AST 15 U/L (0-40) 06/03/25 17:33 ALT 15 U/L (0-41) 06/03/25 17:33 Alkaline Phosphatase 75 U/L (40-130) 06/03/25 17:33 Troponin T Baseline 7 ng/L (0-15) 06/03/25 17:33 Troponin T 120 Minute 7.28 ng/L (0-15) 06/03/25 19:40 Delta Troponin T 0.28 ABS# (0-10) 06/03/25 19:40 Total Protein 8.1 g/dL (6.6-8.7) 06/03/25 17:33 Albumin 4.6 g/dL (3.5-5.2) 06/03/25 17:33 Globulin 3.5 g/dL (1.3-4.6) 06/03/25 17:33 Lipase 22 U/L (13-60) 06/03/25 17:33 Urine Color Dark yellow (Yellow) A 06/03/25 19:00 Urine Appearance Cloudy (CLEAR) A 06/03/25 19:00 Urine pH 5.5 (5-7) 06/03/25 19:00 Ur Specific [place] 1.028 (1.005-1.030) 06/03/25 19:00 Urine Protein Trace (Negative) A 06/03/25 19:00 Urine Glucose (UA) Negative (Normal) 06/03/25 19:00 Urine Ketones 2+ (Negative) H 06/03/25 19:00 Urine Blood Negative (Negative) 06/03/25 19:00 Urine Nitrate Negative (Negative) 06/03/25 19:00 Urine Bilirubin Negative (Negative) 06/03/25 19:00 Urine Urobilinogen 1.0 mg/dL (Negative) 06/03/25 19:00 Ur Leukocyte Esterase Negative (Negative) 06/03/25 19:00 Urine RBC 0-2 /hpf (0-2) 06/03/25 19:00 Urine WBC 0-5 /hpf (0-5) 06/03/25 19:00 Ur Squamous Epith Cells 0-5 /hpf (0-5) 06/03/25 19:00 Amorphous Sediment Not Reportable 06/03/25 19:00 Urine Bacteria None seen /hpf (NONE) 06/03/25 19:00 Hyaline Casts 0.81 /lpf 06/03/25 19:00 All radiology interpretation(s) finalized by discharge Discharge Plan Discharge Patient Disposition: Home Clinical Impression: Vertigo Condition: Stable Prescriptions: New meclizine 25 mg tablet 25 mg PO TID PRN (Reason: dizziness) Qty: 30 0RF Discharge Orders: Discharge ED (Routine); Ordered 06/03/25 Ordered By: Santana Loving Patient Instructions: Vertigo (ED), Opioid Safety, Pain Management, Patient Portal & Marika Instructions Activity Restrictions/Additional Instructions: Take medication 3 times daily until dizziness is improved significantly, then you may decrease to 2 then 1 daily. Follow-up with your doctor next week. Return for any problems. Print Language: Nepali Coding Level of Care Code ED Safety Glass Installer for Chiquita Wood
[2025-06-03] MEDS: LORazepam 1 MG/0.5 ML injection 0.5 MG IVP (18:51)
[2025-06-03 18:59] VITALS: BP 130/87; BP 131/88; BP 137/86; PULSE 54; PULSE 69; PULSE 78
[2025-06-03 19:00] VITALS: BP 144/87; PULSE 60; RESP 17; O2SAT 97
[2025-06-03 19:02] VITALS: BP 130/87; BP 131/88; BP 137/86; PULSE 54; PULSE 69; PULSE 78
[2025-06-03 19:02] LABS: Troponin(5th) Baseline 7 ng/L (0-15)
[2025-06-03 19:32] LABS: Glucose Urine UA Negative (Normal); Nitrate Urine Negative (Negative); Specific Gravity, Urine 1.028 (1.005-1.030)
[2025-06-03 19:37] LABS: Add Urine Microscopic? YES
[2025-06-03 20:09] LABS: Troponin 5 2HR 7.28 ng/L (0-15); Troponin 5 2HR Delta 0.28 ABS# (0-10)
[2025-06-03 20:30] VITALS: BP 136/83; PULSE 58; O2SAT 98
--- NOTE | 2025-06-03 20:44 | ECG_ITS ---
[facility]25[facility]-03 Pat Name: Juan Daneil Trejo Department: Room: Gender: Male Traffic Rate Clerk: : 1955 Requested By: Santana Khalil Order Number: [id number] Yoo MD: Pietro Ricardo M.D. Measurements Intervals [place] Rate: 58 P: 66 SD: 216 QRS: 42 QRSD: 100 T: 65 QT: 421 QTc: 414 Interpretive Statements SINUS BRADYCARDIA WITH FIRST DEGREE AV BLOCK Compared to ECG 06/03/2025 17:02:07 First degree AV block now present NO SIGNIFICANT CHANGE Electronically Signed On 06-04-2025 20:39:54 CDT by Pietro Ricardo M.D. [email or web address]
[2025-06-03 22:09] VITALS: BP 143/83; PULSE 61; O2SAT 94
== END 2025-06-03 22:11 | disposition home or self-care (01) ==
PROVIDERS: Family Medicine; Emergency Provider Emergency Medicine
DX: R42 Dizziness and giddiness (principal)
CPT/HCPCS: 36415; 70450; 71045; 80053; 81001; 83690; 83735; 84484; 85025; 93005; 96361; 96374; 99285; J2060; J7030; J8597